=== PATIENT | female | born 1935 ===

== ENCOUNTER → 2019-12-18 18:43 | Outpatient (CLI) | payer MEDICARE, SELFPAY ==
[2019-12-18 19:59] LABS: Chloride 91 mmol/L (98-107)
[2019-12-18 20:00] LABS: Sodium 133 mmol/L (136-145)
[2019-12-18 20:02] LABS: Blood Urea Nitrogen 9 mg/dl (7-17); Estimated Glomerular Filt Rate 95 ml/min (>60); GFR (African American) 116 ML/MIN (>60)
[2019-12-18 20:03] LABS: Anion Gap 10.9 mEq/L (5-15); Calcium 8.6 mg/dl (8.4-10.2); Carbon Dioxide 34 mmol/L (22.0-30.0); Glucose 65 mg/dl (74-100)
[2019-12-18 20:32] LABS: Potassium 2.9 mmoL/L (3.5-5.1)
== END ==
PROVIDERS: Visit Provider Pediatrics
DX: L89.154 Pressure ulcer of sacral region, stage 4 (principal)
CPT/HCPCS: 80048